=== PATIENT | female | born 1980 | race Caucasian/White ===

== ENCOUNTER 2020-01-08 09:36 | Outpatient (CLI) | payer OTHER, SELFPAY | END 2020-01-08 09:37 | disposition home or self-care (01) | PROVIDERS: PCP Family Medicine; Visit Provider Specialist | DX: D22.5 Melanocytic nevi of trunk (principal); L08.89 Other specified local infections of the skin and subcutaneous tissue | CPT/HCPCS: 88305; 88342 ==

== ENCOUNTER 2020-11-07 02:07 | Outpatient (CLI) | payer OTHER, SELFPAY ==
[2020-11-07 20:00] LABS: SARS-CoV-2 RNA PCR Negative
== END 2020-11-07 02:08 | disposition home or self-care (01) ==
LOC: ANHCOVIDDT 02:07
PROVIDERS: PCP Family Medicine; Visit Provider Obstetrics & Gynecology
DX: Z01.818 Encounter for other preprocedural examination (principal); Z20.828 Contact with and (suspected) exposure to other viral communicable diseases
CPT/HCPCS: 87635; C9803; U0003

== ENCOUNTER 2020-11-10 01:52 | Day surgery (SDC) | payer OTHER, SELFPAY ==
[2020-10-31 13:07] VITALS: BMI 23.1
[2020-11-10] VITALS (11 sets, daily range): BP systolic 107–119; BP diastolic 73–91; PULSE 74–108; RESP 10–22; TEMP 36.3–36.6; O2SAT 100
[2020-11-10] MEDS: ACETAMINOPHEN 500 MG TABLET 1000 MG PO (09:11)
[2020-11-10] MEDS: KETOROLAC 15 MG/ML VIAL (*BKC) IV PUSH (09:17)
[2020-11-10] MEDS: LACTATED RINGERS 1,000 ML 30 ML IV CONT ×2 (09:18→12:10)
--- NOTE | 2020-11-10 09:20 | WPDANESEPPF ---
Anes - Initial Pre Proc Eval Procedure: Operation Date: 11/10/20 10:30 Proposed Procedures p Laparoscopic Bilateral Tubal Sterilization with Fallopian Rings - Primo Barry MD s Hysteroscopy, Dilation and Curettage - Primo Barry MD Date/Time: 11/10/20 09:20 Surgeon: Primo Barry MD Pre Op Diagnosis: sterilization, irregular bleeding Patient Data Age: 39 Gender: F Height: 1.63 m Weight: 61.2 kg Last Vital Signs Temp 36.6 C 11/10/20 08:42 Pulse 108 H 11/10/20 08:42 Resp 20 11/10/20 08:42 BP 113/76 11/10/20 08:42 Pulse Ox 100 11/10/20 08:42 Allergies Allergy/AdvReac Type Severity Reaction Status Date / Time No Known Allergies Allergy Mild Unverified 11/10/20 08:54 Home Medications Medication Instructions Recorded Confirmed Type bupropion HCl [Wellbutrin] 150 mg PO DAILY 10/31/20 11/10/20 History fluticasone propionate [Flonase 2 spray INTRANASAL DAILY PRN 10/31/20 11/10/20 History Allergy Relief] loratadine [Claritin] 10 mg PO DAILY PRN 10/31/20 11/10/20 History Patient hx anesthesia problems: none Family hx anesthesia problems: none PMFSH Social History Social History Smoking packs per day: 0.25 Smoking cigarettes per day: 5.0 Years smoked: 10 Smoking pack-years: 2.50 Smoking status: Current some day smoker Tobacco type: cigarettes Living arrangements: with family Gender identity (if verbalized by the patient): Female Sexual Orientation (if Verbalized by the Patient): Straight or Heterosexual Spiritual care concerns: No Anes - Eval Final PreProcedure Day of Procedure 11/10/20 09:20 Patient weight: normal Heart: regular rate and rhythm Lungs: clear to auscultation and normal air movement Airway: Mallampati scale class II Neurological: alert and oriented Last oral intake: >/= 8 hours ASA classification: II Emergent: no Anesthetic plan: proceed Anesthesia type and monitoring: general ETT and standard monitoring Informed Consent: The patient's anesthetic plan and its attendant risks and benefits were discussed with the patient/family/POA. Questions were solicited and answers provided to the satisfaction of the patient/family/POA.
--- NOTE | 2020-11-10 10:09 | PM.IMHP ---
H&P: HPI History of Present Illness Date/Time: 11/10/20 10:09 Chief Complaint: Heavy periods Narrative: 39 y/o with heavy menses lasting 6 days each. She does not desire any future childbearing. Ultrasound demonstrates two endometrial masses, functional type change in the adnexa. Review of Systems Review of Systems: All systems reviewed & are unremarkable except as noted in HPI and below PMFSH Social History Social History Smoking packs per day: 0.25 Smoking cigarettes per day: 5.0 Years smoked: 10 Smoking pack-years: 2.50 Smoking status: Current some day smoker Tobacco type: cigarettes Living arrangements: with family Gender identity (if verbalized by the patient): Female Sexual Orientation (if Verbalized by the Patient): Straight or Heterosexual Spiritual care concerns: No Meds Home Medications and Allergies Home Medications Medication Instructions Recorded Confirmed Type bupropion HCl [Wellbutrin] 150 mg PO DAILY 10/31/20 11/10/20 History fluticasone propionate [Flonase 2 spray INTRANASAL DAILY PRN 10/31/20 11/10/20 History Allergy Relief] loratadine [Claritin] 10 mg PO DAILY PRN 10/31/20 11/10/20 History Allergies Allergy/AdvReac Type Severity Reaction Status Date / Time No Known Allergies Allergy Mild Unverified 11/10/20 08:54 Vital Signs Vital Signs - 24 hr 11/10/20 08:42 Temperature 36.6 C Pulse Rate 108 H Respiratory Rate 20 Blood Pressure 113/76 Pulse Oximetry 100 Exam Const: Orientation/consciousness: patient oriented x3 Other: Well-developed, well-nourished female in no acute distress. Neck: Thyroid: thyroid normal Lymphatic: no lymphadenopathy noted (in neck, axilla or inguinal nodes) Resp: Effort & Inspection: normal respiratory effort Auscultation: clear to auscultation bilaterally Cardio: Rate: regular rate Rhythm: regular rhythm Heart sounds: S1 normal heart sound present and S2 normal heart sound present GI: Other: ABD: Soft, nontender, nondistended. No guarding or rebound tenderness. No hepatosplenomegaly. : General: Yes no CVA tenderness Other: External genitalia: normal female hair distribution, without lesion. Urethral meatus: no lesion, non prolapsed. Bladder: no mass, nontender Vagina: well-estrogenized, without lesion or discharge. No cystocele or rectocele. Cervix: no lesion or discharge. Uterus: small, anteverted, freely mobile, nontender Adnexa: no mass or tenderness. Anus/perineum: no lesions, nontender Back/Spine/Pelvis: Back: no CVA tenderness Skin: General skin exam: normal color and no rashes or lesions noted Neuro: General: patient oriented x3 Extrem: Other: Extremities: nontender with no edema Psych: Mental Status: mental status grossly normal Affect: normal affect Assessment and Plan Assessment and plan (1) Menorrhagia: Code(s): N92.0 - Excessive and frequent menstruation with regular cycle Status: Acute Assessment and Plan: 1) Menorrhagia. 2) Desired sterility. Plan: She is interested in surgical management of her problem. She understands there are temporary methods of contraception available to her. She understands that there are nonsurgical options as well as surgical options. She understands that tubal ligation will render her permanently sterile. She understands that there is a failure rate associated with tubal ligation, as well as an inherent ectopic gestation risk. Furthermore, she understands risks of surgery to include risks of anesthesia, risks of pain, infection, bleeding, blood products, thromboembolic phenomena and damage to adjacent structures such as bowel, bladder, ureters, blood vessels and nerves. She understands all these risks and elects to proceed with surgery. She has received the ACOG pamphlet on surgical sterilization. We plan laparoscopic bilateral tubal ligation, hysteroscopy, D&C, and endometrial
--- NOTE | 2020-11-10 10:19 | WPDHPUPDATE1 ---
History and Physical Update Update Date/Time: 11/10/20 10:19 History and Physical has been reviewed, including an updated exam of the patient. There are NO changes in the patient's condition. Risks, benefits, and alternatives have been discussed and questions answered. Patient agrees to proceed with procedure.
[2020-11-10] MEDS: LIDOCAINE HCL 1.5% INFILTRATE (11:38)
--- NOTE | 2020-11-10 11:43 | SUR.OPER ---
3ML LIDOCAINE INJECTED INTO TUBES PER DR JENKINS
--- NOTE | 2020-11-10 11:59 | SUR.OPER ---
400 ml in 300 ml out
--- NOTE | 2020-11-10 12:12 | PM.PROC ---
Procedure Note - Detailed Date of procedure: 11/10/20 Pre-op diagnosis: sterilization, irregular bleeding Menorrhagia Desired sterility Post-op diagnosis: same Procedure performed: Laparoscopic BTL Hysteroscopy Dilation and sharp curettage Endometrial ablation Description of procedure: The patient was taken to the operating room where general endotracheal anesthesia was administered. She was prepared and draped in the usual sterile fashion in dorsal lithotomy position. The bladder was drained with a red rubber catheter. A sterile speculum was placed into the vagina. The anterior lip of the cervix was grasped with a single-tooth tenaculum. The acorn uterine manipulator was placed. The speculum was withdrawn. Gloves were changed and attention was turned the abdomen. An infraumbilical skin incision was made with a scalpel. The abdomen was tented and a 5mm bladeless trocar was advanced under direct laparoscopic visualization. Pneumoperitoneum was administered using carbon dioxide gas. A survey of the pelvis and abdomen revealed the findings noted above. A second skin incision was made in the midline above the symphysis pubis and an 8mm bladeless trocar was advanced under direct laparoscopic visualization. The fallopian tube on the right side was followed out to the fimbriated end for identification. It was then grasped in the midportion with the Falope ring applicator. The Falope ring was tented applied. A good loop of tube was noted to be distal to the ring. Hemostasis was excellent. The device was reloaded and the contralateral tube was similarly identified and ligated. An excellent application was noted here as well. A total of 3mL of 1% lidocaine was infiltrated into the serosa of the proximal tubes for postoperative anesthesia. The ports were withdrawn. The gas was allowed to escape. The skin incisions were reapproximated using interrupted subcuticular sutures of 4 0 Vicryl. Dermaflex was applied externally. Attention was returned to the vagina, and the acorn manipulator was withdrawn and speculum reintroduced. Ten mL of 1% lidocaine was administered in a paracervical block. The cervix was then gently dilated using Hegar dilators until an 8 mm dilator could be passed. Hysteroscopy was performed using sterile saline as a distention medium. Findings are as noted above. Sharp curettage was then performed, and endometrial curettings were collected on a Telfa pad and passed off to be sent to pathology. Finally, the the Rosario device was advanced and endometrial ablation commenced without difficulty. The device was withdrawn and a second look was taken using the hysteroscope. Excellent coverage of the endometrial cavity was noted. The tenaculum was removed. Hemostasis was excellent. Sponge, lap, needle and instrument counts were correct. The patient was awakened and taken to the recovery room in stable condition. I was present and scrubbed through the entire procedure. Implants: Falope rings x 2 Anesthesia: GETA and local (1% lidocaine) Surgeon: Primo Barry MD Estimated blood loss (mL): 5 Drains: No Packing: No Pathology: yes (endometrial curettings) Complications: None Condition: stable Disposition: PACU Findings: Normal-appearing RUQ anatomy. Vermiform appendix not seen. Some adhesions in the posterior cul de sac. The uterus is a little enlarged and boggy in texture, but is otherwise unremarkable. The anterior cul de sac, bilateral ovaries and tubes, bilateral uterosacral and round ligaments are all normal in appearance. On hysteroscopy the endometrial tissue is thick, with a suggestion of several small polyps. Both tubal ostia seen. The uterus sounded to a depth of 8 cm with a cervical length of 3 cm, giving a subtracted uterine cavity length of 5 cm.
[2020-11-10] MEDS: fentaNYL CITRATE INJ (*CRX) 100 MCG/2 ML VIAL 25 MCG IV PUSH ×5 (12:28→13:06)
[2020-11-10] MEDS: HYDROmorphone HCL INJ (*CRX) 1 MG/ML SYR 0.25 MG IV PUSH ×3 (13:18→13:33)
[2020-11-10] MEDS: oxyCODONE HCL (*CRX) 5 MG TAB IR PO (13:54)
== END 2020-11-10 14:40 | disposition home or self-care (01) ==
PROVIDERS: PCP Family Medicine; Visit Provider Obstetrics & Gynecology
PROC: (CPT 58671; principal; 2020-11-10 10:30)
PROC: 0U5B8ZZ Destruction of Endometrium, Via Natural or Artificial Opening Endoscopic (ICD-10-PCS; CPT 58563; 2020-11-10 10:30)
DX: Z30.2 Encounter for sterilization (principal); N92.0 Excessive and frequent menstruation with regular cycle; F17.210 Nicotine dependence, cigarettes, uncomplicated
CPT/HCPCS: 58671; 58563; 88305; A4264; A9270; J0330; J1100; J1170; J1885; J2250; J2405; J2704; J3010; J7030; J7120

== ENCOUNTER 2021-10-05 09:21 | Outpatient (CLI) | payer OTHER, SELFPAY ==
--- NOTE | ~2021-10-05 | MM_ITS ---
EXAMINATION: MM screening [facility] BI w jose HISTORY: Screening mammogram TECHNIQUE: Craniocaudal and mediolateral oblique 3-D tomosynthesis images were obtained and synthetic 2-D images were generated. CAD analysis was submitted and interpreted. COMPARISON: No prior mammogram is available for comparison at this institution. BREAST PARENCHYMAL COMPOSITION: The breasts are extremely dense, which lowers the sensitivity of mamm ography. FINDINGS: There is no evidence of suspicious mass, calcification, or architectural distortion to sugg est malignancy in either breast. IMPRESSION: 1. No mammographic evidence of malignancy. 2. Recommend routine screening mammography in one year. BI-RADS Category 1: Negative Reviewed, dictated and finalized at location A. OMER EXPERIENCE STRATEGIST
== END 2021-10-05 09:22 | disposition home or self-care (01) ==
LOC: ANHIMG 09:23
PROVIDERS: PCP Family Medicine; Visit Provider Obstetrics & Gynecology
DX: Z12.31 Encounter for screening mammogram for malignant neoplasm of breast (principal)
CPT/HCPCS: 77063; 77067

== ENCOUNTER 2022-11-23 15:13 | Outpatient (CLI) | payer OTHER, SELFPAY ==
--- NOTE | ~2022-11-23 | MM_ITS ---
EXAMINATION: MM screening [facility] BI w jose HISTORY: Screening mammogram TECHNIQUE: Craniocaudal and mediolateral oblique 3-D tomosynthesis images were obtained and synthetic 2-D images were generated. CAD analysis was submitted and interpreted. COMPARISON: 10/05/2021 BREAST PARENCHYMAL COMPOSITION: The breasts are extremely dense, which lowers the sensitivity of mamm ography. FINDINGS: No suspicious mass, calcification, or architectural distortion are identified in either serafin ast to suggest malignancy. There has been no suspicious interval change. IMPRESSION: 1. No mammographic evidence of malignancy. 2. Recommend routine screening mammography in one year. BI-RADS Category 1: Negative Reviewed, dictated and finalized at location A. TICAL DIRECTOR
== END 2022-11-23 15:14 | disposition home or self-care (01) ==
PROVIDERS: PCP Family Medicine; Visit Provider Obstetrics & Gynecology
DX: Z12.31 Encounter for screening mammogram for malignant neoplasm of breast (principal)
CPT/HCPCS: 77063; 77067

== ENCOUNTER 2024-02-03 14:48 | Outpatient (CLI) | payer OTHER, SELFPAY ==
--- NOTE | ~2024-02-03 | MM_ITS ---
EXAMINATION: MM screening [facility] BI w jose HISTORY: Screening mammogram TECHNIQUE: Craniocaudal and mediolateral oblique 3-D tomosynthesis images were obtained and synthetic 2-D images were generated. Bilateral rotated lateral CC views. CAD analysis was submitted and interp reted. COMPARISON: 12/20/2022, 10/05/2021 bilateral screening mammogram examinations BREAST PARENCHYMAL COMPOSITION: The breasts are extremely dense, which lowers the sensitivity of mamm ography. FINDINGS: There is no evidence of suspicious mass, calcification, or architectural distortion to sugg est malignancy in either breast. There has been no suspicious interval change. IMPRESSION: 1. No mammographic evidence of malignancy. 2. Recommend routine screening mammography in one year. BI-RADS Category 1: Negative Reviewed, dictated and finalized at location A.
== END 2024-02-03 14:49 | disposition home or self-care (01) ==
PROVIDERS: PCP Family Medicine; Visit Provider Obstetrics & Gynecology
DX: Z12.31 Encounter for screening mammogram for malignant neoplasm of breast (principal)
CPT/HCPCS: 77063; 77067

== ENCOUNTER 2025-02-04 08:07 | Outpatient (CLI) | payer OTHER, SELFPAY ==
--- NOTE | ~2025-02-04 | MM_ITS ---
EXAMINATION: MM screening [facility] BI w jose HISTORY: Screening TECHNIQUE: Craniocaudal and mediolateral oblique 3-D tomosynthesis images were obtained and synthetic 2-D images were generated. CAD analysis was submitted and interpreted. COMPARISON: Comparison to multiple prior studies sequentially, with oldest reviewed study dated 09/21. BREAST PARENCHYMAL COMPOSITION: Dense: The breasts are extremely dense, which lowers the sensitivity of mammography. FINDINGS: There is a developing asymmetry in the upper central aspect of the left breast, posterior t hird. The right breast is stable without evidence for malignancy. IMPRESSION: 1. Developing left breast asymmetry. 2. Additional mammographic views and possible breast ultrasound are recommended. BI-RADS Category 0: Incomplete: Needs additional imaging evaluation. Reviewed, dictated and finalized at location B. IMPRESSION: 1. Developing left breast asymmetry. 2. Additional mammographic views and possible breast ultrasound are recommended . BI-RADS Category 0: Incomplete: Needs additional imaging evaluation.
--- OUTSIDE RECORDS SUMMARY | 2025-02-04 08:20 | XMS_ITS | Clinical Summary ---
Author Organization [facility] Address [address] [place] [id number] Care Team Providers Care Assessment Clinician Name Role Phone Juan Carlos Austin Primary Care Provider Allergies No known active allergies Medications No known medications Social History Tobacco Use Types Packs/Day Years Used Date Smoking Tobacco: Some Days Cigarettes Smokeless Tobacco: Never Tobacco Cessation:Ready to Q uit: Not Asked; Counseling Given: Not Answered Alcohol Use Standard Drinks/Week Comments Not Currently 0 (1 standard drink = 0.6 oz pur e alcohol) Comments No Sex and Gender Information Value Date Recorded Sex Assigned at Not on file Legal Sex Female 7:17 PM CDT Gender Identity Not on file Sexual Orientation Not on file Last Filed Vital Signs Vital Sign Reading Time Taken Comments Blood Pressure 116/83 05/17/2024 8:00 PM CDT Pulse 97 05/17/2024 8:00 PM CDT Temperature 36.7 C (98 F) 05/17/2024 7:22 PM CDT Respiratory Rate 16 05/17/2024 7:22 PM CDT Oxygen Saturation 99% 05/17/2024 8:00 PM CDT Inhaled Oxygen Concentration - - Weight 62.6 kg (138 lb) 05/17/2024 7:22 PM CDT Height 162.6 cm (5' 4 ) 05/17/2024 7:22 PM CDT Body Mass Index 23.69 05/17/2024 7:22 PM CDT Plan of Treatment Health Maintenance Due Date Last Done Comments Cervical Cancer Screening Pa p Smear (Age 30 to 64) Every 3 Years 1980 Annual Physical 1983 Pneumococcal Vaccine: Pediatrics (0 to 5 Years) and At-Risk Patients (6 to 64 Years) (1 of 2 - PCV) 1986 Hepatitis C 1998 DTaP, Tdap and Td Vaccines ( 1 - Tdap) 1999 Hepatitis B Vaccines (1 of 3 - 19+ 3-dose series) 1999 Cervical Cancer Screening Sedrick ann with HPV Testing (Age 30 to 64) Every 5 Years 2010 Cervical Cancer Screening wi th HPV 2010 Mammogram Screening 2020 COVID-19 Vaccine (4 - 2023-2 5 season) 2024 12/03/2021, 02/17/2021, 01/27/2021 Influenza Adult (#1) 2024 09/25/2023 HPV Vaccines Aged Out No longer eligi ble based on patient's age to complete this topic Meningococcal B Vaccine Aged Out No l onger eligible based on patient's age to complete this topic Meningococcal Vaccine Aged Out No yajaira laurie eligible based on patient's age to complete this topic RSV Immunizations Under 20 Months Aged Out No longer eligible b ased on patient's age to complete [place] [id number] Care Teams Assessment Clinician Relationship Specialty Start Date End Date Juan Carlos Austin PA [address] [place] [id number] PCP - General PHYSICIAN [facility] [employer] 05/17/24
== END 2025-02-04 08:08 | disposition home or self-care (01) ==
LOC: ANHIMG 08:09
PROVIDERS: PCP Family Medicine; Visit Provider Obstetrics & Gynecology
DX: Z12.31 Encounter for screening mammogram for malignant neoplasm of breast (principal); R92.8 Other abnormal and inconclusive findings on diagnostic imaging of breast
CPT/HCPCS: 77063; 77067

== ENCOUNTER 2025-02-14 12:58 | Outpatient (CLI) | payer OTHER, SELFPAY ==
--- NOTE | ~2025-02-14 | MMUS_ITS ---
EXAMINATION: MM diagnostic [facility] LT w jose, US breast LT limited HISTORY: 44-year-old woman presents for diagnostic evaluation of a developing asymmetry in the upper central aspect of the left breast, posterior third described on screening mammography dated 02/05/20 25. TECHNIQUE: Additional 3-D tomosynthesis images of left breast were performed and synthetic 2-D images were generated. CAD analysis was submitted and interpreted. High resolution focused left breast ultrasound was then performed. COMPARISON: Multiple prior studies, performed most recently on 02/04/2025 and dating back to . BREAST PARENCHYMAL COMPOSITION: Dense: The breasts are extremely dense, which lowers the sensitivity of mammography. FINDINGS: MAMMOGRAPHIC FINDINGS: Within the upper outer quadrant of the left breast is a irregularly shaped asymmetry measuring approx imately 7 mm located between 5 and 6 cm from the nipple. This focus persists on spot compression for which focused ultrasound will be performed. Multiple smaller asymmetries are also noted, benign in morphology for which ultrasound will also be p erformed for confirmation of their benignity. Punctate and bulky calcifications are also present, unchanged from prior. ULTRASOUND: At the 2:00 position of the left breast approximately 5 cm from the nipple is a primarily oval shaped focus with irregular lateral margins. This area demonstrates decreased echogenicity and measures 7.1 x 4.6 x 0.2 mm, corresponding to the abnormality seen on spot compression mammography. No increased vascularity is noted. No posterior acoustic shadowing is noted. At the 1:00 position of the left breast approximately 1 cm from the nipple is a well-circumscribed an echoic avascular focus measuring 6.0 x 3.1 x 4.2 mm, consistent with a simple cyst (likely partially involuting) for which no further follow-up is needed. At the 1:00 position of the left breast in the periareolar position is a well-circumscribed avascular anechoic focus measuring 4.1 x 2.9 x 4.7 mm, with increased through transmission consistent with a s imple cyst for which no further follow-up is needed. Sonographic evaluation of the remainder of the upper outer quadrant of the left breast demonstrates e xtremely dense tissue, and otherwise benign fibroglandular elements without a cystic or solid lesion of concern. IMPRESSION: Findings at the 2:00 position of the left breast approximately 5 cm from the nipple which corresponds to the abnormality seen on mammography/tomography, for which ultrasound-guided biopsy is recommended . BI-RADS category 4, suspicious findings. Reviewed, dictated and finalized at location A. IMPRESSION: Findings at the 2:00 position of the left breast approximately 5 cm from the ni pple which corresponds to the abnormality seen on mammography/tomography, for w hich ultrasound-guided biopsy is recommended. BI-RADS category 4, suspicious findings.
--- OUTSIDE RECORDS SUMMARY | 2025-02-14 13:53 | XMS_ITS | Clinical Summary ---
Author Organization [facility] Address [address] [place] [id number] Care Team Providers Care Rn Recovery Name Role Phone Juan Carlos Austin Primary Care Provider [phone] Allergies No known active allergies Medications No [...] patient's age to complete this topic Insurance Care Teams Rn Recovery Relationship Specialty Start Date End Date Juan Carlos Austin PA [address] [place] [phone] PCP - General PHYSICIAN [employer] GRINDER 05/17/24
== END 2025-02-14 12:59 | disposition home or self-care (01) ==
LOC: ANHIMG 12:59
PROVIDERS: PCP Family Medicine; Visit Provider Obstetrics & Gynecology
DX: R92.8 Other abnormal and inconclusive findings on diagnostic imaging of breast (principal)
CPT/HCPCS: 76642; 77061; 77065; G0279

== ENCOUNTER 2025-03-12 12:40 | Outpatient (CLI) | payer OTHER, SELFPAY ==
--- NOTE | ~2025-03-12 | MR_ITS ---
MR breast BI wo/w con 03/12/2025 16:36 CDT INDICATION: Left breast mass seen on prior examination. Biopsy requested. TECHNIQUE: MRI of the breasts perform using standard protocol pre-and post IV contrast with the follo wing sequences: Axial T2 STIR, axial T1, axial vibrant T1 with fat suppression precontrast and multip hasic postcontrast. 12 cc ProHance administered intravenously. COMPARISON: Comparison to multiple prior studies sequentially, with oldest reviewed study dated 09/21. FINDINGS: The breasts contain extremely volume of fibroglandular content. There are small bilateral b reast cysts. Right breast: There are no abnormalities on the precontrast sequences. There is minimal background pa renchymal enhancement. In the lower outer quadrant of the right breast there is an oval circumscribed rim-enhancing mass which is slightly T2 bright. This mass measures 11 x 10 x 7 mm with rapid plateau enhancement, likely benign. In the lower inner quadrants of the right breast at 4:00 middle third th ere is a 7 mm oval enhancing mass with rapid washout enhancement located 7.5 cm posterior to the nipp le with circumscribed margins. No evidence of signal abnormalities in the axillary or internal mammar y node distributions. LEFT BREAST: No signal abnormalities on precontrast sequences. There is mild background parenchymal enhancement. At 2:00 posteriorly in the upper outer quadrant of the left breast there is a oval-shape d rim-enhancing mass measuring 9 x 5 x 6 mm with rapid plateau enhancement. This mass is located 8.4 cm posterior to the nipple and likely corresponds to the mass identified on ultrasound dated 5 located by ultrasound at 2:00, 5 cm from the nipple. In the lower inner quadrant of the left breast at approximately 7:00, middle third there is an enhancing mass with slightly irregular margins, hete rogeneous enhancement characterize is rapid plateau enhancement. In the central posterior aspect of t he left breast there is nonmass-like enhancement measuring 8 x 9 x 6 mm with rapid plateau characteri stics. This is medial to the previously characterized mass at 2:00. There is a small intramammary lym ph node measuring 6 mm in the upper outer quadrant of the left breast at 12:00 anteriorly. No evidenc e of signal abnormalities in the axillary or internal mammary node distributions.] IMPRESSION: 1: Right breast: Probable benign masses of the right breast. Right breast ultrasound recommended. BI -RADS Category 0. 2: Left breast: Suspicious left breast mass at 2:00 posteriorly measuring 9 mm likely corresponding to the sonographic abnormality. Ultrasound-guided biopsy recommended. Additional indeterminate masses are identified in the left breast as described above as well as an area of nonmass-like enhancement located centrally and posteriorly. Additional evaluation with left breast ultrasound recommended. BI- RADS Category 4. Reviewed, dictated and finalized at location A. IMPRESSION: 1: Right breast: Probable benign masses of the right breast. Right breast ultr asound recommended. BI-RADS Category 0. 2: Left breast: Suspicious left breast mass at 2:00 posteriorly measuring 9 mm likely corresponding to the sonographic abnormality. Ultrasound-guided biopsy recommended. Additional indeterminate masses are identified in the left breast as described above as well as an area of nonmass-like enhancement located centr ally and posteriorly. Additional evaluation with left breast ultrasound recomme nded. BI-RADS Category 4.
--- OUTSIDE RECORDS SUMMARY | 2025-03-12 14:27 | XMS_ITS | Data Portability ---
Author Organization [facility], [address] [place] [address] ([place]) Address [address] [place] [address] Assessment Encounter Date Assessment Date Assessment LastModified by Organization Details LastModified Time 05/23/2024 05/23/2024 Chief complaint: Right index finger pain History of present illness: Patient is a 43-year-old female presents to the clinic for evaluation of right index finger pain. Patient dislocated her right index PIP joint while catching a football on 05/17/2024. This was reduced at [place]. Patient reports her pain has been improving slightly since that time but has noticed more bruising. She was placed in a long finger splint and stopped wearing this yesterday because she felt her index finger become too stiff. Exam: Patient is in no acute distress and is well-dressed and well-nourished. Patient has appropriate mood and affect. Respirations are nonlabored. Sclera are nonicteric. Patient is tender over the PIP joint of her right index finger. She is able to flex his finger to 90 degrees. Patient able to flex and extend all fingers without difficulty. There are some mild bruising around the PIP joint of the right next week. Results: X-rays were reviewed independently and with the patient. They showed the right index PIP to be properly reduced and no other acute osseous abnormalities. Assessment: Right index finger PIP dislocation 05/17/2024 Plan: Patient patient reports she has been doing much better over the last few days. She was instructed to beatriz tape her right index finger to her middle finger for the next 3 weeks and will see us again in [place] for repeat x-rays. aric Not available 05/23/2024 10:41:26 06/11/2024 06/11/2024 Chief complaint: Right index finger pain History of present illness: Patient is a 43-year-old female presenting to the clinic for evaluation of her right index PIP joint after a dislocation 4 weeks ago. Patient reports she is doing well and her pain is much improved. She does have some decreased range of motion of the PIP joint of her right index finger. She also reports some very mild numbness to the distal pad of her right index finger. She reports that this has been improving over the last week or so. Exam: Patient is in no acute distress and is well-dressed and well-nourished. Patient has appropriate mood and affect. Respirations are nonlabored. Sclera are nonicteric. Patient is tender over the lateral aspects of the right index PIP joint. There are some mild swelling of this joint. She is able to flex this joint to 90 degrees. Patient is able to flex and extend all other fingers without difficulty. Assessment: Status post right index PIP joint dislocation Plan: Patient is doing well following conservative treatment of this issue. Patient was instructed she can stop with the beatriz tape of her right index finger. Patient was instructed to work on range of motion exercises at home. If she does not feel significant improvement in her range of motion we will consider occupational therapy in the future. Patient will call the office with any questions or concerns. aric Not available 06/11/2024 11:08:41 Plan of Treatment Reminders Order Date Submit Date Provider Last Modified By Organization Details Last Modified Time Details Appointments None record ed. Lab None record ed. Referral None record ed. Procedures None record ed. Surgeries None record ed. Imaging None record ed. Medication Orders None record ed. Patient TargetsNo targets recorded. Patient InstructionsNo instructions recorded. Reason for Referral None Reported. Results Created Date Observation Date Name Description Value Unit Range Abnormal Flag Note LastModifiedBy Organization Detail LastModifiedTime 05/28/20 24 05/23/2024 XR, finge r(s) [address] [address] Teleph one [phone] Name: Eve Waggoner pe [id number] am Date: 2023 Age: 43Phys ician: Walt nunez MD, Amber : 1980Ex aminat ion: XR FINGER S RIGHT EXAM: Right index finger radiog raphs, multip le views HISTOR Y: Finger pain FINDIN GS: Multip le views right index finger show no soft tissue abnorm alitie s. No bony abnorm alitie s nor arthri tic change s are identi fied. The right index finger radiog raphs are unrema rkable . IMPRES LITO: Unrema rkable right index finger radiog raphs Electr onical ly signed in [place] cribe by: AMBER NUNEZ MD on:05/28 8:32 AM cc: Page PAGE 1 of NUMPA ES 1 INTERFACE [facility] [address] [place] [address], [id number], 05/28/2024 09:35:48 06/25/2006/11/2024 XR, finge r(s) No observ ation record ed. [place] [id number] [facility] [address] [place] [address], [id number], 06/25/2024 09:07:03 Result Notes None recorded. Problems Name Problem SNOMED Code Status Onset Date Resolution Date Notes Provider Name and Address Organization Details Recorded Time Dislocation of digit of hand 532354674 Active 2023 Hyacinth Mart [facility] 4 15:43:52 Closed traumatic dislocation, proximal interphalangea l joint 773324408 Active 2023 JARRETT CASTRO PA-C [address] [place] [address], [id number], [facility] 4 10:37:39 Problem Notes None recorded. Procedures Surgical History None recorded. Imaging Results Imaging Date Name Status LastModified by Organiz ation Details LastModified Time 05/23/2024 XR, finger(s) completed [facility] [address] [place] [address], [id number], 05/28/2024 09:35:48 06/11/2024 XR, finger(s) completed [place] [id number] [facility] [address] [place] [address], [id number], 06/25/2024 09:07:03 Procedure Notes None recorded. Medical Equipment None Reported. Medications Name Sig Start Date Stop Date Status Note LastModified by Organization Details LastModified Time hydrocodone 5 mg-acetaminoph en 325 mg tablet active Not Available Not Available Not Available fluoxetine 10 mg tablet active Not Available Not Available No t Available naproxen 500 mg tablet active Not Available Not Available No t Available Vitals None Recorded Social History None recorded. Functional Status None recorded. Mental Status None recorded. Family History Nothing Reported. Medical History No medical history recorded. Gynecological HistoryNo gynecological history recorded. Obstetrics History GPAL:G 0 P 0 0 0 0 Past Encounters Encounter ID Performer Location Encounter Start Date Encounter Closed Date Diagnosis/Indication Diagnosis SNOMED-CT Code Diagnosis ICD10 Code Diagnosis Note [id number] Amber Jama MD [address] [place] [address] [facility] [address] [address] 05/23/2024 10:04:41 05/23/2024 11:04:33 Closed traumatic dislocation, proximal interphalangeal joint 373722874 S63.280A [id number] Amber Jama MD [facility] ([place]) [address] [place] [address] 06/11/2024 10:34:02 06/26/2024 16:48:47 Closed traumatic dislocation, proximal interphalangeal joint 797393991 S63.280A Health Concerns Section Related Observation LastModified by Organization Detai ls LastModified Time None Recorded Concern Status LastModified by Organization Details LastModified Time None Recorded Advance Directives Directive None Recorded Payers Encounter Date Sequence Insurance Name Policy Number Policy Wolfe Covered Member ID Wolfe Member ID Guarantor Name 05/23/2024 1 [facility] Eve B Schweppe [id number] Eve B Schweppe 06/11/2024 1 [facility] ([place]) Eve B Schweppe [id number] Eve B Schweppe OBGyn Episode No OBEpisode recorded.
--- OUTSIDE RECORDS SUMMARY | 2025-03-12 14:27 | XMS_ITS | Clinical Summary ---
Author Organization [facility] Address [address] [place] [address] Care Team Providers Care Nurse Intern Name Role Phone Juan Carlos Austin Primary Care Provider [phone] Allergies No known active allergies Medications No [...] Every 3 Years 1980 Annual Physical 1983 Hepatitis C 1998 DTaP, Tdap and Td Vaccines ( 1 - Tdap) 1999 Hepatitis B Vaccines (1 of 3 - 19+ 3-dose series) 1999 Pneumococcal Vaccine: Pediatrics (0 to 5 Years) and At-Risk Patients (6 to 49 Years) (1 of 2 - PCV) 1999 Cervical Cancer Screening Pa p with HPV Testing (Age 30 to 64) Every 5 Years 2010 Cervical Cancer Screening wi th HPV 2010 Mammogram Screening 2020 COVID-19 Vaccine (4 - 2023-2 5 season) 2024 12/03/2021, 02/17/2021, 01/27/2021 HPV Vaccines Aged Out No longer eligi [...] to complete this topic Insurance Care Teams Nurse Intern Relationship Specialty Start Date End Date Juan Carlos Austin PA [address] [place] [phone] PCP - General PHYSICIAN INTERNET MARKETING ANALYST 05/17/24
== END 2025-03-12 12:41 | disposition home or self-care (01) ==
PROVIDERS: PCP Family Medicine; Visit Provider Surgery
DX: N63.21 Unspecified lump in the left breast, upper outer quadrant (principal); R92.343 Mammographic extreme density, bilateral breasts; R92.8 Other abnormal and inconclusive findings on diagnostic imaging of breast
CPT/HCPCS: 77049; A9579; C8908

== ENCOUNTER 2025-07-23 12:58 | Outpatient (CLI) | payer OTHER, SELFPAY ==
--- NOTE | ~2025-07-23 | US_ITS ---
EXAMINATION: US pelvic complete w TV INDICATION: Benign neoplasm of connective tissue Comparison:No prior studies for comparison. TECHNIQUE: Multiple transabdominal and endovaginal sonographic images of the pelvis performed. FINDINGS: The uterus measures 8.8 x 6.6 x 6.6 cm. There are uterine fibroids, largest on the left measuring 3.8 x 3.9 x 3.2 cm. The endometrial complex measures 8 mm. The right ovary is not visualized. Left ovary measures 4 x 1.9 x 2.1 cm. There is a 1.6 cm cyst of the left ovary. There is no free fluid in the pelvis. There are no abnormal masses seen on either side. IMPRESSION: 1. Uterine fibroids, largest measuring 3.9 cm. 2: Simple cyst of the left ovary measuring 1.6 cm. Reviewed, dictated and finalized at location O.
== END 2025-07-23 12:59 | disposition home or self-care (01) ==
LOC: GOSHIMG 12:58
PROVIDERS: PCP Obstetrics & Gynecology; Visit Provider Obstetrics & Gynecology
DX: R10.2 Pelvic and perineal pain (principal); D25.9 Leiomyoma of uterus, unspecified; N83.202 Unspecified ovarian cyst, left side
CPT/HCPCS: 76830; 76856

== ENCOUNTER 2025-10-30 00:24 | Day surgery (SDC) | payer OTHER, SELFPAY ==
[2025-10-25 16:56] VITALS: BMI 23.5
--- NOTE | 2025-10-25 17:30 | PC.NURSE ---
[facility] has started construction of its new state of the art ER which will open Spring 2026. With this, we anticipate parking may be a challenge for some our surgical patients and families. Parking spaces are limited but are available for all Surgical, obstetrics, and ER patients sharing this lot. If you arrive and find you are having a hard time finding a parking space, please note that we understand the challenges, please drive around the hospital and park near Hospital Entrance 1. When you enter this entrance, you can ask a volunteer to direct or take you back to the surgical waiting area to check in. We appreciate everyone?s understanding of these expected challenges while we build for your future. Report to the Outpatient Waiting Room, entrance under the green pavilion located off [address], at 1000 on 10-30-25 Planned Procedure Time: 1200.? Time changes happen often and if your time is changed the preop area will call you the afternoon before. - You and your visitor will be asked to self-screen and do not enter if you have any COVID symptoms. Please call surgeon if you need to reschedule. - A mask is optional within the hospital at this time. Patients may have clear liquids (water, carbonated beverages, clear teas, apple juice) until 3 hours prior to surgery with a maximum of 20 ounces. 0900 - No food from midnight until time of surgery and no smoking, or chewing tobacco (or any form of nicotine). No chewing gum, candy or mints. - Infants may have breast milk until 4 hours before surgery, infant formula 6 hours prior to surgery. - Children will be allowed to drink immediately following surgery.? If applicable, please bring a bottle or sippy cup to assist with drinking. Juice, water, soda, and popsicles are readily available.? For infants on formula, please bring formula the day of surgery.? Pacifiers are allowed. Take only the following medications with a SIP of water on the morning of surgery: None DO NOT STOP ANY OF YOUR OTHER PRESCRIPTION MEDICATIONS PRIOR TO SURGERY EXCEPT THE FOLLOWING Hold all vitamins and supplements for 3 days per anesthesiologist. 10-27-25 Medications to discontinue per physician: N/A Please no make-up, nail wallisian, hairspray, perfume, deodorant, or body powder the day of surgery.? No jewelry (including any body piercings) or valuables the day of surgery, leave them at home.? Please take a shower or bath the night before, or the morning of, surgery with an antibacterial soap.? Wear comfortable, loose fitting clothing.? Children are encouraged to wear pajamas. - Jewelry must be removed prior to entering the operating room.? Rings and piercings that are not removed may be cut off. - The hospital will not accept responsibility for valuables.? - Please leave all valuables, including medications, at home the day of surgery. If you are going home after surgery, a licensed national van truck driver must drive you home.? - NO public transportation without another adult if you receive anesthesia. - We recommend that an adult stay with you for 24 hours following discharge. - We also recommend that you do not drive, make important decision, drink alcoholic beverages, or take any drugs that were not prescribed by your health care provider for at least 24 hours after your discharge time. For Pediatric surgeries, we recommend two adults accompany the child home. Follow any additional instructions given to you from your surgeon. Telephone instructions given to Eve Patrick and asked if any additional questions and then verbalized understanding. Patient advised to call surgeon office or pre surgery nurse liaison [phone] if any additional questions.
[2025-10-30] VITALS (11 sets, daily range): BP systolic 96–126; BP diastolic 60–97; PULSE 71–104; RESP 10–16; TEMP 36.4–37.3; O2SAT 97–100; BMI 23.4
--- OUTSIDE RECORDS SUMMARY | 2025-10-30 00:27 | XMS_ITS | Patient Health Record ---
Author Organization [facility] Address [address] [place] [address] Care Team Providers Care Draughtsman Name Role Phone ROSANGELA JIANG Unavailable [phone] Reason For Referral No Information Problems Problem Type SNOMED Code ICD Code Onset Dates Problem Status W/U Status Risk Notes Problem Plantar wart (56503533) Plantar wart (B07.0) 09/20/2022 Active confirmed Problem Pain in left foot (9295875246310 07) Pain in left foot (M79.672) 09/20/2022 Active confirmed Problem Family history of diabetes mellitus (757254328) Family history of diabetes mellitus (Z83.3) 09/09/2022 Active confirmed Plan Of Treatment No Information Insurance Providers Payer Name Payer Address Payer Phone Subscriber Number Group Number Insured Name Patient Relationship to Insured Coverage Start Date Coverage End Date [employer] [address] [place] [phone] [id number] GERI LI Self - patient is the insured
--- OUTSIDE RECORDS SUMMARY | 2025-10-30 00:27 | XMS_ITS | Clinical Summary ---
Author Organization [facility] Address [address] [place] [address] Care Team Providers Care Solidworks Mechanical Designer Name Role Phone Juan Carlos Austin Primary Care Provider [phone] Allergies No known active allergies Medications No [...] 7:22 PM CDT Height 162.6 cm (5' 4) 05/17/2024 7:22 PM CDT Body Mass Index [...] Years) (1 of 2 - PCV) 1999 HPV Vaccines (1 - 3-dose SCD M series) 2007 Cervical Cancer Screening Pa p with HPV Testing (Age 30 to 64) Every 5 Years 2010 Cervical Cancer Screening wi th HPV 2010 Mammogram Screening 2020 COVID-19 Vaccine (2024-2 6 season) 2025 12/03/2021, 02/17/2021, 01/27/2021 Influenza Adult (#1) 2025 09/25/2023 Hepatitis A Vaccines Aged Out No long er eligible based on patient's age to complete [...] to complete this topic Insurance Care Teams Solidworks Mechanical Designer Relationship Specialty Start Date End Date Juan Carlos Austin PA [address] [place] [address] PCP - General PHYSICIAN PUBLIC HEALTH 05/17/24
--- OUTSIDE RECORDS SUMMARY | 2025-10-30 00:28 | XMS_ITS | Clinical Summary ---
Author Organization [facility] Address [address] [place] [address] Care Team Providers Care Engine Maintenance Mechanic Name Role Phone Primo Barry MD Primary Care Provider [phone] Allergies No known active allergies Encounters Date Type Department Care Team Description 09/26/2025 9:58 AM TAKE OUT WAITER/WAITRESS - 09/26/2025 11:59 PM TAKE OUT WAITER/WAITRESS Hospital Encounter [facility] Breast Imaging [facility] [address] [place] [id number] Mammographic extreme density, bilateral breasts; Mass of right breast, unspecified quadrant; Mass of left breast, unspecified quadrant; Other abnormal and inconclusive findings on diagnostic imaging of breast Discharge Disposition: Discharge to home or self care from Last 3 Months Surgical History Surgery Date Site/Laterality Comments BREAST BIOPSY 04/01/2025 Left Benign BREAST CYST EXCISION Left 18y Family History Medical History Relation Name Comments Breast cancer Father's Sister Breast cancer Paternal Grandmother Ovarian cancer Neg Hx Pancreatic cancer Neg Hx Prostate cancer Neg Hx Relation Name Status Comments Father's Sister Paternal Grandmother Social History Tobacco Use Types Packs/Day Years Used Date Smoking Tobacco: Never Assessed Comments No Sex and Gender Information Value Date Recorded Sex Assigned at Not on file Legal Sex Female 12:59 PM CDT Gender Identity Not on file Sexual Orientation Not on file Obstetrics History Para Term AB IAB SAB Ectopic Multiple Livin g Live Births 2 2 Date Outcome GA Total Labor Labor/2nd/3rd Weight Sex Type Anes PTL Reina A1 A5 Name Clin Last Filed Vital Signs Vital Sign Reading Time Taken Comments Blood Pressure - - Pulse - - Temperature - - Respiratory Rate - - Oxygen Saturation - - Inhaled Oxygen Concentration - - Weight 61.2 kg (135 lb) 09/26/2025 10:11 AM TAKE OUT WAITER/WAITRESS Height 162.6 cm (5' 4) 09/26/2025 10:11 AM TAKE OUT WAITER/WAITRESS Body Mass Index 23.17 09/26/2025 10:11 AM TAKE OUT WAITER/WAITRESS Plan of Treatment Health Maintenance Due Date Last Done Comments Cervical Cancer Screening 1980 Depression Screening 1980 Hepatitis C Screening 1980 DTaP/Tdap/Td Vaccine (1 - Tdap) 1991 Varicella Vaccines (1 of 2 - 13+ 2-dose series) 1993 Hepatitis B Screening 1998 Regular Well Visit/Exam 18-64 1998 HPV Vaccines (1 - 3-dose SCD M series) 2007 Covid-19 Vaccine (2024-2 6 season) 2025 12/03/2021, 02/17/2021, 01/27/2021 Influenza Vaccine (#1) 2025 09/25/2023 Breast Cancer Screening-Mammogram 03/22/2026 03/22/2025 Pneumococcal vaccine <65 Aged Out No longer eligible based on patient's age to complete this topic Medical Devices Implanted Type Area Senior Data Mining Analyst Device Identifier Shelf Expiration Date Model / Serial / Lot Bard Peripheral Vascular Ultraclip Bard 17ga 10cm 2 Trigger Permanent Ultrasound [id number] - [id number] Implanted:Qty: 1 on 04/01/2025 by Fernando Tafoya MD at [facility] [employer] [id number] / / Procedures Procedure Name Priority Date/Time Associated Diagnosis Comments US BREAST RIGHT LIMITED Schedule Routine, Read Routine (OP Routine) 09/26/2025 10:52 AM TAKE OUT WAITER/WAITRESS Mammographic extreme density, bilateral breasts Mass of right breast, unspecified quadrant Mass of left breast, unspecified quadrant Other abnormal and inconclusive findings on diagnostic imaging of breast SCREENING MAMMOGRAM 2D BILATERAL Schedule Routine, Read Routine (OP Routine) 03/22/2025 9:07 AM CDT from Last 3 Months or Most Recently Relevant to Health Maintenance Results * US Breast Right Limited (09/26/2025 10:52 AM TAKE OUT WAITER/WAITRESS) Anatomical Region Laterality Modality Breast Right Ultrasound 09/26/2025 11:0 1 AM TAKE OUT WAITER/WAITRESS Impressions 09/26/2025 12:20 PM TAKE OUT WAITER/WAITRESS Stable oval hypoechoic masses in the right breast at the 9:30 and 9:00 location, a probably benign finding. Recommend short interval follow-up with right breast ultrasound at the time of patient's annual screening due in January 2026. OVERALL FINAL ASSESSMENT: BI-RADS Category 3: Probably Benign. RECOMMENDATION: Recommend follow-up diagnostic breast imaging in 6 months with right breast ultrasound at that time of patient's annual screening mammogram. Dr. Matias discussed the above findings and recommendations with the patient. Dictated by: Carol Ann Matias M.D. The radiology attending physician has personally reviewed this study, and had reviewed and/or edited this written report and agrees with it. Electronically signed by: Shameka Sims M.D. Narrative 09/26/2025 12:20 PM TAKE OUT WAITER/WAITRESS EXAMINATION: RIGHT BREAST ULTRASOUND HISTORY: 44-year-old woman presents for short interval follow-up of masses in the right breast. COMPARISON: Mammograms dated 03/22/2025 and priors dating back to outside facility via 2022. TECHNIQUE: Directed ultrasound evaluation of the RIGHT breast was performed. ULTRASOUND FINDINGS: Targeted sonographic evaluation at the right 9:30, 6 cm from the nipple demonstrates a stable 1.2 x 0.5 x 1.1 cm hypoechoic mass. At the 9:00 location, 6 cm from the nipple demonstrates a stable 0.6 x 0.3 x 0.6 cm oval hypoechoic mass. Primo Barry MD IMG MAMMO PROCEDURES Final R esult * Screening Mammogram 2D Bilateral (03/22/2025 9:07 AM CDT) Anatomical Region Laterality Modality Breast Bilateral Mammography Historical Provider MD [facility] MAMMO PROCEDURES Raquel l Result from Last 3 Months or Most Recently Relevant to Health Maintenance Insurance [facility] Care Teams Engine Maintenance Mechanic Relationship Specialty Start Date End Date Primo Barry MD [address] [address] PCP - General Obstetrics and Gynecology 03/20/25
--- NOTE | 2025-10-30 10:17 | PM.IMHP2 ---
H&P: HPI History of Present Illness Date/Time: 10/30/25 10:17 Chief Complaint: Painful fibroid uterus Narrative: 44 y/o with known uterine fibroids. She has had a tubal ligation and an endometrial ablation. Menses are light in terms of flow, with just some brown spotting. However, she has quite a lot of pain with menses. This seems to be getting progressively worse over the last several months. She also notices pain in the right adnexa, radiating down the right leg during her menses. She has finished childbearing. Ultrasound exam shows a fibroid uterus. The largest myoma is 3.9cm in largest dimension. The endometrial complex is 8mm thick. There is a simple left ovarian cyst. The right ovary is not well seen. She is scheduled for robotic assisted total vaginal hysterectomy with salpingectomy bilaterally. Review of Systems Review of Systems: All systems reviewed & are unremarkable except as noted in HPI and below PMFSH Past Medical History Medical History Fibroids Surgical History Surgical History H/O tubal ligation History of endometrial ablation [place] teeth removed Family History Family History Grandparent Diabetes mellitus Cancer Father Diabetes mellitus Social History Social History Smoking packs per day: 0.25 Smoking cigarettes per day: 5.0 Years smoked: 10 Smoking pack-years: 2.50 Smoking status: Former smoker Tobacco type: cigarettes Second hand tobacco smoke exposure: No Alcohol intake: current Substance use: never Substance use type: does not use Lack of Transportation: No Lack of Food: Never True Current Housing: I Have Housing Concerned About Future Housing: No Difficulty Paying Gas/Electric Bills: No Difficulty Paying for Meds: No Currently Unemployed: No Education: Trade/Vocational Certificate Difficulty w/ Childcare or Family Care: No Living arrangements: with family Gender identity (if verbalized by the patient): Female Sexual Orientation (if Verbalized by the Patient): Straight or Heterosexual Spiritual care concerns: No Meds Home Medications and Allergies Home Medications ?Medication ?Instructions ?Recorded ?Confirmed ?Type calcium acetate 667 mg tablet 667 mg PO ONCE 07/18/25 10/25/25 History cholecalciferol (vitamin D3) 25 25 mcg PO DAILY 07/18/25 10/25/25 History mcg (1,000 unit) capsule multivitamin 1 tablet PO DAILY 07/18/25 10/25/25 History magnesium glycinate 300 mg PO DAILY 10/25/25 10/25/25 History Allergies Allergy/AdvReac Type Severity Reaction Status Date / Time No Known Allergies Allergy Mild Verified 10/25/25 16:53 Exam Const: Orientation/consciousness: patient oriented x3 Other: Well-developed, well-nourished female in no acute distress. Neck: Thyroid: thyroid normal Lymphatic: no lymphadenopathy noted (in neck, axilla or inguinal nodes) Resp: Effort & Inspection: normal respiratory effort Auscultation: clear to auscultation bilaterally Cardio: Rate: regular rate Rhythm: regular rhythm Heart sounds: S1 normal heart sound present and S2 normal heart sound present GI: Other: ABD: Soft, nontender, nondistended. No guarding or rebound tenderness. No hepatosplenomegaly. : General: Yes no CVA tenderness Other: External genitalia: normal female hair distribution, without lesion. Urethral meatus: no lesion, non prolapsed. Bladder: no mass, nontender Vagina: well-estrogenized, without lesion or discharge. No cystocele or rectocele. Cervix: no lesion or discharge. Uterus: small, anteverted, freely mobile, nontender Adnexa: no mass or tenderness. Anus/perineum: no lesions, nontender Back/Spine/Pelvis: Back: no CVA tenderness Skin: General skin exam: normal color and no rashes or lesions noted Neuro: General: patient oriented x3 Extrem: Other: Extremities: nontender with no edema Psych: Mental Status: mental status grossly normal Affect: normal affect Assessment and Plan Assessment and plan (1) Fibroid uterus: Qualifiers: Uterine leiomyoma location: unspecified location Qualified Code(s): D25.9 - Leiomyoma of uterus, unspecified Code(s): D25.9 - Leiomyoma of uterus, unspecified Status: Acute Assessment and Plan: A: Symptomatic fibroid uterus. P: We reviewed medical as well surgical treatment strategies, and she says she is ready for definitive management with surgery. Specifically, I have offered her a robotic assisted total vaginal hysterectomy with bilateral salpingectomies. We would plan to leave the ovaries in-situ. She understands risks of surgery to include risks of anesthesia, risks of pain, infection, bleeding, blood products, thromboembolic phenomena and damage to adjacent structures such as bowel, bladder, ureters, blood vessels and nerves. She understands all these risks and elects to proceed with surgery. (2) Pelvic pain in female: Code(s): R10.2 - Pelvic and perineal pain Status: Acute (3) Dysmenorrhea: Code(s): N94.6 - Dysmenorrhea, unspecified Status: Acute
[2025-10-30] MEDS: ACETAMINOPHEN 500 MG TABLET 1000 MG PO (11:08)
[2025-10-30] MEDS: KETOROLAC 15 MG/ML VIAL (*BKC) IV PUSH (11:37)
--- NOTE | 2025-10-30 11:37 | WPDHPUPDATE1 ---
History and Physical Update Update Date/Time: 10/30/25 11:37 History and Physical has been reviewed, including an updated exam of the patient. There are NO changes in the patient's condition. Risks, benefits, and alternatives have been discussed and questions answered. Patient agrees to proceed with procedure.
[2025-10-30] MEDS: LACTATED RINGERS 1,000 ML 30 ML IV CONT ×2 (11:40→14:05)
--- NOTE | 2025-10-30 11:52 | WPDANESEPPF ---
Anes - Initial Pre Proc Eval Procedure: Operation Date: 10/30/25 12:00 Proposed Procedures p Robotic Assisted Total Vaginal Hysterectomy with Bilateral Salpingectomy - Primo Barry MD Date/Time: 10/30/25 11:52 Surgeon: Primo Barry MD Pre Op Diagnosis: Fibroids. Pelvic Pain, Dysmenorrhea Patient Data Age: 44 Gender: F Height: 1.63 m Weight: 61.9 kg Last Vital Signs Temp 36.8 C 10/30/25 10:10 Pulse 99 10/30/25 10:10 Resp 16 10/30/25 10:10 BP 124/80 10/30/25 10:10 Pulse Ox 100 10/30/25 10:10 O2 Del Method Room Air 10/30/25 10:10 Allergies Allergy/AdvReac Type Severity Reaction Status Date / Time No Known Allergies Allergy Mild Verified 10/30/25 10:58 Home Medications ?Medication ?Instructions ?Recorded ?Confirmed ?Type calcium acetate 667 mg tablet 667 mg PO ONCE 07/18/25 10/30/25 History cholecalciferol (vitamin D3) 25 25 mcg PO DAILY 07/18/25 10/30/25 History mcg (1,000 unit) capsule multivitamin 1 tablet PO DAILY 07/18/25 10/30/25 History magnesium glycinate 300 mg PO DAILY 10/25/25 10/30/25 History Patient hx anesthesia problems: none Family hx anesthesia problems: none Results Review: All pre-operative results and documents have been reviewed as part of the pre-operative evaluation. [facility] Past Medical History Medical History Fibroids Surgical History Surgical History H/O tubal ligation History of endometrial ablation [place] teeth removed Family History Family History Grandparent Diabetes mellitus Cancer Father Diabetes mellitus Social History Social History Smoking packs per day: 0.25 Smoking cigarettes per day: 5.0 Years smoked: 10 Smoking pack-years: 2.50 Smoking status: Former smoker Tobacco type: cigarettes Second hand tobacco smoke exposure: No Alcohol intake: current Substance use: never Substance use type: does not use Lack of Transportation: No Lack of Food: Never True Current Housing: I Have Housing Concerned About Future Housing: No Difficulty Paying Gas/Electric Bills: No Difficulty Paying for Meds: No Currently Unemployed: No Education: Trade/Vocational Certificate Difficulty w/ Childcare or Family Care: No Living arrangements: with family Gender identity (if verbalized by the patient): Female Sexual Orientation (if Verbalized by the Patient): Straight or Heterosexual Spiritual care concerns: No Anes - Eval Final PreProcedure Day of Procedure 10/30/25 11:52 Patient weight: normal Heart: regular rate and rhythm Lungs: clear to auscultation Airway: Mallampati scale class II Neurological: alert and oriented Last oral intake: >/= 8 hours ASA classification: II Emergent: no Anesthetic plan: proceed Anesthesia type and monitoring: general ETT and standard monitoring Results Review: All pre-operative results and documents have been reviewed as part of the pre-operative evaluation. Informed Consent: The patient's anesthetic plan and its attendant risks and benefits were discussed with the patient/family/POA. Questions were solicited and answers provided to the satisfaction of the patient/family/POA.
[2025-10-30] MEDS: ceFAZolin 2 GM in SODIUM CHLORIDE 0.9% IV 50 ML 100 ML IVPB (12:00)
[2025-10-30] MEDS: SCOPOLAMINE 1 MG PATCH 1 PATCH TRANSDERM (12:05)
[2025-10-30 12:09] LABS: BEDSIDEPREGUCG Negative (Negative)
--- NOTE | 2025-10-30 13:10 | S_PTH ---
PATIENT: Eve Patrick LOC: [facility] U#:[id number] AGE/SX: 44/F ROOM: RE10/30/[address]: Primo Barry MD : 1980 BED: DIS: 10/31/2025 SPEC #: [id number] RECD: 10/30/25 14:47 STATUS: PATTIE REChet #: [id number] JARED: 10/30/25 13:[address]: Primo Barry DEPT: [facility] Surgical RECD BY: Sugar Danielle ENTERED: 10/30/25 14:47 SP TYPE: Surgical OTHR DR: RADIOLOGY TRANSPORTER PHYSICIAN Tissues: A - Uterus Procedures: Hematoxylin and Eosin Stain Gross and Microscopic Level 5
--- NOTE | 2025-10-30 13:20 | W.PM.PROC2 ---
Procedure Note - Detailed Date of Procedure 10/30/25 Pre-op Diagnosis Uterine fibroids Pelvic pain Dysmenorrhea Post-op Diagnosis Same Procedure Performed Robotic assisted total vaginal hysterectomy with bilateral salpingectomy Surgeon Primo Barry MD Anesthesia General Findings Uterus was enlarged and globular. Fallopian tubes with evidence of prior tubal ligation. Normal-appearing bilateral ovaries, anterior and posterior cul de sac, bilateral round and uterosacral ligaments. Description of Procedure The patient was taken to the operating room where general endotracheal anesthesia was administered. She was prepared and draped in the usual sterile fashion in the dorsal lithotomy position. The bladder was drained with Smith catheter. The cervix was visualized and the anterior lip was grasped using a single-tooth tenaculum. The cervix was gently dilated using Hegar dilators. The RENETTA 2 uterine manipulator was then placed and the tenaculum was removed. Gloves were changed and attention was turned to the abdomen. A supraumbilical skin incision was made with the scalpel. The Veress needle was advanced and pneumoperitoneum was administered using carbon dioxide gas. The bladeless trocar was then advanced. Intraperitoneal placement was confirmed using the laparoscope. Lateral ports and an accounting assistant port were all placed using bladeless trocars under direct laparoscopic visualization. She was placed in Trendelenburg position and the patient cart was docked. I assumed the console. The ureters were visualized bilaterally. The round ligament on the right was divided. The fallopian tube was dissected off the ovary, and the uteroovarian ligament was divided. The broad ligament was divided, skeletonizing the uterine artery on the right. The bladder was reflected away. The left side was similarly dissected. Colpotomy was performed circumferentially. The specimen was removed and passed off to be sent to pathology. The vaginal cuff was reapproximated using 0 Vicryl in interrupted [id number] fashion. The pelvis was irrigated copiously using warmed normal saline. Rigorous hemostasis was assured. HemaDerm was applied to the vaginal cuff. The pedicles were inspected once again. The ports were then withdrawn and the gas was allowed to escape. The skin incisions were reapproximated using 4 0 Monocryl in interrupted subcuticular fashion. Dermaflex was applied externally. Sponge, lap, needle and instrument counts were correct. The patient was awakened and taken to the recovery room in stable condition. I was present and scrubbed through the entire procedure. Implants None Estimated Blood Loss 50 Drains Yes (Smith) Packing No Pathology Yes (Uterus, cervix, bilateral Fallopian tubes) Complications None Condition Stable Disposition PACU [facility] Billing Surgery - Charge Forward: Surgery Billing
[2025-10-30] MEDS: fentaNYL CITRATE INJ (*CRX) 100 MCG/2 ML VIAL 25 MCG IV PUSH ×8 (13:46→14:23)
[2025-10-30] MEDS: ONDANSETRON INJ 4 MG/2 ML VIAL IV PUSH ×2 (13:49→20:25)
--- NOTE | 2025-10-30 15:19 | P.DS_ITS ---
DS: Admitting Diagnosis Discharge Date 10/31/25 Admitting Diagnosis Symptomatic fibroid uterus Pelvic pain Dysmenorrhea DS: Discharge Diagnosis Discharge Diagnosis (1) Dysmenorrhea: Code(s): N94.6 - Dysmenorrhea, unspecified Status: Acute (2) Fibroid uterus: Qualifiers: Uterine leiomyoma location: unspecified location Qualified Code(s): D25.9 - Leiomyoma of uterus, unspecified Code(s): D25.9 - Leiomyoma of uterus, unspecified Status: Acute (3) Pelvic pain in female: Code(s): R10.2 - Pelvic and perineal pain Status: Acute DS: Summary Hospital Course Hospital Course: She was admitted for scheduled surgery. She underwent robotic assisted TVH. Postop she did well. She tolerated a regular diet and was voiding without difficulty. She was able to go home on POD1. Time Spent with Patient Time attestation: Total time spent providing and/or coordinating discharge services: DS: Data Data Completed and Pending Pending studies at discharge: Pending at discharge 10/30/25 13:10 Surgical [PTH] Routine Labs on day of discharge: Labs from last 24 hours 10/30/25 10/30/25 10:54 10:30 POC Urine HCG, Qual Negative Blood Type O Positive Antibody Screen Negative Discharge Plan Discharge Patient Disposition: Home Discharge Instructions: Nothing in the vagina for 6 weeks. Call or return if temperature above 100.4? F, increased abdominal pain, increased vaginal bleeding or any new problems. Patient Language: Romanian Stand Alone Forms: General Discharge Instructions Follow-up/Referrals: Primo Barry MD [Physician, TELEPHONE ANSWERER] - 2 Weeks Discharge Medications: New oxycodone-acetaminophen [Endocet] 5-325 mg tablet 1 - 2 tablet PO Q6H PRN (Reason: pain) Qty: 30 0RF Continued multivitamin Tablet 1 tablet PO DAILY cholecalciferol (vitamin D3) 25 mcg (1,000 unit) capsule 25 mcg PO DAILY calcium acetate 667 mg tablet 667 mg PO ONCE magnesium glycinate 100 mg magnesium capsule 300 mg PO DAILY
[2025-10-30] MEDS: METOCLOPRAMIDE HCL INJ 10 MG/2 ML VIAL IV PUSH ×2 (15:25→21:36)
[2025-10-30] MEDS: SIMETHICONE 80 MG TAB.CHEW PO (16:57)
[2025-10-30] MEDS: DEXTROSE 5%/0.45% SOD CHL 1,000 ML 125 ML IV CONT (17:08)
[2025-10-30] MEDS: KETOROLAC 30 MG/ML VIAL (*BKC) IV PUSH ×2 (17:08→23:40)
[2025-10-30] MEDS: MORPHINE SULFATE (*CRX) 4 MG/ML INJ IV PUSH ×2 (17:28→21:36)
[2025-10-31 05:27] VITALS: PULSE 76; RESP 16; O2SAT 98
[2025-10-31 05:40] VITALS: BP 101/69; PULSE 76; RESP 16; TEMP 37.2; O2SAT 98
[2025-10-31] MEDS: KETOROLAC 30 MG/ML VIAL (*BKC) IV PUSH (05:40)
[2025-10-31 05:41] LABS: Hematocrit 33.2 % (37.0-47.0); Hemoglobin 11.4 g/dL (12.0-15.0); Immature Granulocyte Percent A 0.8 % (0-0.5); Lymphocytes Absolute Auto 2.58 K/mm3 (0.9-3.2); Mean Corpuscular HGB Conc 34.3 g/dl (32-36); Mean Corpuscular Hemoglobin 31.2 pg (26-34); Mean Corpuscular Volume 91.0 fl (80-100); Nucleated Red Blood Cells Absolute Auto 0.000 K/mm3 (0.0-0.012); Nucleated Red Blood Cells Perc 0.0 % (0.0-0.2); Platelet Count Result 218 k/mm3 (150-375); Red Blood Count 3.65 M/mm3 (4.2-5.4); White Blood Count 18.8 K/mm3 (4.5-10.0)
[2025-10-31 08:25] VITALS: BP 87/56; PULSE 79; RESP 16; TEMP 36.8; O2SAT 98
[2025-10-31] MEDS: DOCUSATE SODIUM 100 MG CAPSULE PO (09:30)
[2025-10-31] MEDS: SIMETHICONE 80 MG TAB.CHEW PO (09:31)
[2025-10-31] MEDS: ACETAMINOPHEN 500 MG TABLET 1000 MG PO (09:31)
[2025-10-31] MEDS: ENOXAPARIN 40 MG/0.4 ML SYRINGE SUB-Q (09:31)
--- NOTE | 2025-10-31 09:35 | PM.GYNPNOP ---
COLLISION REPAIR TECHNICIAN - A/P Assessment and plan (1) Pelvic pain in female: Code(s): R10.2 - Pelvic and perineal pain Status: Acute Assessment and Plan: A: POD#1, doing well. P: Home to f/u 2 weeks in office. (2) Dysmenorrhea: Code(s): N94.6 - Dysmenorrhea, unspecified Status: Acute (3) Fibroid uterus: Qualifiers: Uterine leiomyoma location: unspecified location Qualified Code(s): D25.9 - Leiomyoma of uterus, unspecified Code(s): D25.9 - Leiomyoma of uterus, unspecified Status: Acute Postoperative Procedures: Procedures Operation Date: 10/30/25 12:00 Actual Procedure Side Surgeon p Robotic Assisted Total Vaginal Hysterectomy with Bilateral Salpingectomy Bilateral Primo Barry MD Time Spent With Patient Time: Total time spent is greater than 50% in coordination of care (as documented) at patient's floor/unit and/or counseling patient: Time with patient: less than 15 minutes COLLISION REPAIR TECHNICIAN- PN:Subj Post-Op Subjective Date/time seen: 10/31/25 09:35 Interval history: Pain OK. Tolerating diet. Voiding. Would like to go home. Exam Narrative: AVSS I/O OK ABD soft, nontender. Incisions c/d/i. EXT nontender COLLISION REPAIR TECHNICIAN - PN: Obj Data Vital Signs Vital Signs: Vital Signs - 24 hr 10/30/25 10:10 10/30/25 13:35 10/30/25 13:50 Temperature 98.3 F 97.6 F Pulse Rate 99 104 H 85 Respiratory Rate 16 10 L 14 Blood Pressure 124/80 113/97 H 103/66 Pulse Oximetry 100 100 100 Oxygen Delivery Room Air Simple Face Mask Room Air Oxygen Flow Rate 8 10/30/25 14:00 10/30/25 14:15 10/30/25 14:30 Temperature Pulse Rate 82 88 76 Respiratory Rate 12 14 12 Blood Pressure 100/63 120/77 120/77 Pulse Oximetry 99 100 99 Oxygen Delivery Room Air Room Air Room Air Oxygen Flow Rate 10/30/25 14:45 10/30/25 15:00 10/30/25 15:40 Temperature 98.2 F Pulse Rate 73 77 89 Respiratory Rate 16 12 14 Blood Pressure 112/74 126/82 107/73 Pulse Oximetry 100 100 98 Oxygen Delivery Room Air Room Air Oxygen Flow Rate 10/30/25 18:45 10/30/25 18:45 10/30/25 23:40 Temperature 97.9 F 99.1 F Pulse Rate 71 71 72 Respiratory Rate 16 16 16 Blood Pressure 115/70 96/60 L Pulse Oximetry 97 97 98 Oxygen Delivery Room Air Oxygen Flow Rate 10/30/25 23:40 10/31/25 05:27 10/31/25 05:40 Temperature 99.0 F Pulse Rate 72 76 76 Respiratory Rate 16 16 16 Blood Pressure 101/69 Pulse Oximetry 98 98 98 Oxygen Delivery Room Air Room Air Oxygen Flow Rate Intake/Output Intake/Output: Intake & Output 10/28/25 10/29/25 10/30/25 10/31/25 23:59 23:59 23:59 23:59 Intake Total 600 Output Total 480 800 Balance 120 -800 Meds/Results Medications: Active Medications Generic Name Dose Route Start Last Admin Trade Name Freq PRN Reason Stop Dose Admin Acetaminophen 1,000 mg 10/30/25 18:00 10/31/25 09:31 Acetaminophen 500 Mg Tablet PO 1,000 mg Q6HR SAMEERA Administration Docusate Sodium 100 mg 10/30/25 17:00 10/31/25 09:30 Docusate Sodium 100 Mg Capsule PO 100 mg BID SAMEERA Administration Enoxaparin Sodium 40 mg 10/30/25 21:00 10/31/25 09:31 Enoxaparin 40 Mg/0.4 Ml Syringe SUB-Q 40 mg DAILY SAMEERA Administration Dextrose/Sodium Chloride 1,000 mls @ 125 mls/hr 10/30/25 15:03 10/31/25 06:31 Dextrose 5% Sodium Chloride 0.45% IV CONT Not Given .Q8H SAMEERA Ibuprofen 600 mg 10/31/25 12:00 Ibuprofen 600 Mg Tablet PO Q6HR SAMEERA Metoclopramide HCl 10 mg 10/30/25 15:03 10/30/25 21:36 Metoclopramide Hcl Inj 10 Mg/2 Ml Vial IV PUSH 10 mg Q6H PRN Administration Nausea Morphine Sulfate 4 mg 10/30/25 15:03 10/30/25 21:36 Morphine Sulfate (*Crx) 4 Mg/Ml Inj IV PUSH 4 mg Q4H PRN Administration Breakthrough Pain Rated 7-10 or NPO Naloxone HCl 0.1 mg 10/30/25 15:03 Naloxone Hcl 0.4 Mg/Ml Vial IV PUSH Q2M PRN Respiratory rate less than 10 Ondansetron HCl 4 mg 10/30/25 15:03 10/30/25 20:25 Ondansetron Inj 4 Mg/2 Ml Vial IV PUSH 4 mg Q6H PRN Administration Nausea Oxycodone HCl 5 mg 10/30/25 15:03 Oxycodone Hcl (*Crx) 5 Mg Tab Ir PO Q4H PRN Pain Rated 4-6 Oxycodone HCl 10 mg 10/30/25 15:03 Oxycodone Hcl (*Crx) 5 Mg Tab Ir PO Q6H PRN Pain Rated 7-10 Simethicone 80 mg 10/30/25 17:00 10/31/25 09:31 Simethicone 80 Mg Tab.Chew PO 80 mg TIDWM SAMEERA Administration Labs 10/31/25 05:30 Labs: Laboratory Results - last 24 hr 10/30/25 10/30/25 10/31/25 10:30 10:54 05:30 WBC 18.8 H RBC 3.65 L Hgb 11.4 L Hct 33.2 L MCV 91.0 MCH 31.2 MCHC 34.3 RDW 12.9 Plt Count 218 MPV 9.9 Immature Gran % (Auto) 0.8 H Neut % (Auto) 79.0 H Lymph % (Auto) 13.7 L [place] % (Auto) 6.1 Eos % (Auto) 0.2 Baso % (Auto) 0.2 Lymph # (Auto) 2.58 [place] # (Auto) 1.2 H Eos # (Auto) 0.0 Baso # (Auto) 0.0 Abs Immat Gran (auto) 0.15 H Absolute Neuts (auto) 14.8 H Absolute Nucleated RBC 0.000 Nucleated RBC % 0.0 POC Urine HCG, Qual Negative Blood Type O Positive Antibody Screen Negative
== END 2025-10-31 10:51 | disposition home or self-care (01) ==
LOC: ANHSURGERY 13:23 → ANHOB2 15:20
PROVIDERS: Visit Provider Obstetrics & Gynecology
PROC: (CPT 58552; principal; 2025-10-30 12:00)
DX: N88.8 Other specified noninflammatory disorders of cervix uteri (principal); D25.1 Intramural leiomyoma of uterus; G89.18 Other acute postprocedural pain; Z98.890 Other specified postprocedural states; Z98.51 Tubal ligation status; Z98.891 History of uterine scar from previous surgery; Z87.891 Personal history of nicotine dependence; Z80.9 Family history of malignant neoplasm, unspecified
CPT/HCPCS: 58552; S2900; 36415; 85025; 86850; 86900; 86901; 88307; 99199; J0690; A9270; J1100; J1650; J1885; J2003; J2250; J2270; J2405; J2704; J2765; J3010; J7030; J7120